=== PATIENT | male | born 1955 | race Caucasian/White ===

== ENCOUNTER 2018-03-12 12:13 | Inpatient (IN) | payer OTHER ==
[~2018-03-12] VITALS: Ht 180.3 cm; Wt 114.3 kg
[~2018-03-12 12:13] MED LIST: BACTRIM DS TAB1 EACH PO; BUDEPRION SR150 MG PO; CLONAZEPAM; CYCLOBENZAPRINE10 MG PO; DEPAKOTE 250MG250 M1 PO; DEPAKOTE ER500 MG PO; DIOVAN HCT 1601 EACH PO; DOXYCYCLINE 10100 M1 PO; DOXYCYCLINE 10100 MG PO; FLOMAX PO; LEVOTHYROXIN0.025 MG PO; MELOXICAM7.5 MG PO; NABUMETONE 500500 M1 PO; OMEPRAZOLE10 MG PO; OMEPRAZOLE20 M2 PO; PERCOCET 5-3251 EACH PO; PHENERGAN 25 MG25 M1 PO; PROZAC 10 MG CA10 M1 PO; PROZAC40 MG PO; RELAFEN500 MG PO; SIMVASTATIN20 MG PO; VESICARE 5 MG TA5 M1 PO; VICODIN 5-5001 EACH PO; VOLTAREN GEL 1100 G1 TOP; ZPAK PO; [UNRECOGNIZED DRUG - OTHER]; [UNRECOGNIZED DRUG - OTHER]; [UNRECOGNIZED DRUG - OTHER] OP
[2018-03-12 12:32] VITALS: BP 130/79
[2018-03-12 13:29] LABS: BE(vivo) 3.8 mmol/L (-2 to +3); HCO3 28.3 mmol/L (22.0-26.0); PCO2 VENOUS 41.9 mmHg (41.0-51.0); PO2 VENOUS 28.1 mmHg (35.0-45.0)
[2018-03-12 13:30] LABS: HEMATOCRIT 36.7 % (42.0-52.0); HEMOGLOBIN 12.5 gm/dL (14.0-18.0); MCH 30.9 pg (26.0-34.0); MCHC 34.2 g/dL (28.0-37.0); MCV 90.4 fL (80.0-100.0); PLATELET COUNT 221 thou/uL (150-400); RBC 4.06 mil/uL (4.50-6.00); RDW 13.9 % (10.5-14.5); WBC 14.8 thou/uL (4.0-11.0)
[2018-03-12 13:41] LABS: ANION GAP 9 mmol/L (7-16); BUN 22 mg/dL (7-18); CHLORIDE 95 mmol/L (98-107); CO2 31 mmol/L (21-32); CREATININE 0.9 mg/dL (0.7-1.3); GLUCOSE 120 mg/dL (74-106); SODIUM 135 mmol/L (136-145)
[2018-03-12 13:43] LABS: POTASSIUM 2.9 mmol/L (3.5-5.1)
[2018-03-12 13:49] LABS: ALBUMIN 2.2 g/dL (3.4-5.0); SGOT 31 U/L (15-37); SGPT 21 U/L (30-65); TOTAL BILIRUBIN 0.7 mg/dL (<0.1-1.0); TROPONIN-I <0.06 ng/mL (<0.06)
--- NOTE | 2018-03-12 14:02 | EKG ---
[address] [place] [address] ELECTROCARDIOGRAM REPORT Name: ALMITA WEBB Room #: [facility] Paramjit#: [id number] Admission: 03/12/18 Attend Phys: Discharge: Date of : 55 Report #: [id number] THIS REPORT FOR: //name// [facility] ED Test Date: 2018-03-12 Test Time: 13:38:59 Pat Name: ALMITA WEBB Department: Room: Gender: M Heart Nurse: SHILPI : 1955 Requested By: Maribel Silva Order Number: [id number] MD: Uli Callahan Measurements Intervals [place] Rate: 93 P: 10 SC: 145 QRS: -45 QRSD: 156 T: 1 QT: 464 QTc: 578 Interpretive Statements Sinus rhythm RBBB and LAFB Possible inferior infarct, age indeterminate Compared to ECG 07/20/2012 13:27:14 Left anterior fascicular block now present Right bundle-branch block now present Electronically Signed On 03-12-2018 14:02:06 IMAGING AIDE by Uli Callahan [email or web address] <ELECTRONICALLY SIGNED> By: Uli Callahan MD, [facility] 03/12/18 1402 1338 133 Uli Callahan MD, [facility] /EPI
[2018-03-12 14:08] LABS: ABSOLUTE NEUTROPHILS 10.5 thou/uL (1.4-8.2); ATYPICAL LYMPHS 6 %
[2018-03-12 14:13] LABS: TOXIC GRANULATION 1+
[2018-03-12 16:07] VITALS: BP 130/79
[2018-03-12 16:38] VITALS: BP 121/81
[2018-03-12 17:34] VITALS: BP 162/82
--- NOTE | 2018-03-12 18:21 | NUR ---
PATIENT ADMIT TO UNIT FROM ER AT 1645. A/O X4. SOB WITH EXERTION. CONGESTED COUGH. VSS, AFEBRILE. STANDBY ASSISTED WHEN UP TO BATHROOM. WILL KEEP MONITOR.
[2018-03-12 20:10] VITALS: BP 153/80
[2018-03-13 00:15] VITALS: BP 145/87
[2018-03-13 04:20] VITALS: BP 140/79
[2018-03-13 05:41] LABS: HEMATOCRIT 35.1 % (42.0-52.0); MCH 30.8 pg (26.0-34.0); MCHC 34.2 g/dL (28.0-37.0); MCV 90.2 fL (80.0-100.0); PLATELET COUNT 210 thou/uL (150-400); RBC 3.89 mil/uL (4.50-6.00); WBC 12.1 thou/uL (4.0-11.0)
[2018-03-13 06:01] LABS: ALBUMIN 1.8 g/dL (3.4-5.0); CALCIUM 8.5 mg/dL (8.5-10.1); CREATININE 0.7 mg/dL (0.7-1.3); MAGNESIUM 2.4 mg/dL (1.8-2.4); TOTAL BILIRUBIN 0.5 mg/dL (<0.1-1.0); TOTAL PROTEIN 6.3 g/dL (6.4-8.2)
[2018-03-13 06:54] LABS: BE(vivo) 5.1 mmol/L (-2 to +3); HCO3 29.8 mmol/L (22.0-26.0); PCO2 43.9 mmHg (35.0-45.0); PO2 74.5 mmHg (80.0-100.0); pH 7.449 (7.360-7.450); sO2 95.5 % (92.0-98.0)
[2018-03-13 07:16] VITALS: BP 142/85
[2018-03-13 07:34] LABS: ABSOLUTE NEUTROPHILS 8.5 thou/uL (1.4-8.2)
[2018-03-13 07:35] LABS: PLATELET ESTIMATE NORMAL
--- NOTE | 2018-03-13 08:13 | NUR ---
ASSUMED CARE OF PT AT 1900. A&Ox4 W/ OCCASIONAL UNRELATED COMMENTS. SR W/ BBB ON TELE. O2 SAT WAS 88% ON RA, 2L O2 VIA NC INITIATED, SATURATION INCREASED TO 97%. CONGESTED PRODUCTIVE COUGH. LAB CALLED W/ POSITIVE RESULTS FOR GRAM+ BLOOD CULTURES. CONTACTED DONOR FLOOR TECHNICIAN. ADDITIONAL ANTIBIOTICS GIVEN. SBA TO USED URINAL AT THE BEDSIDE, CALLED OUT STAFF REQUESTED. CURRENTLY RESTING AND PROGRESSING TOWARDS POC GOALS.
[2018-03-13] MEDS ORDERED: DEPAKOTE500 MG PO (13:37)
[2018-03-13] MEDS ORDERED: GEODON 80 MG CA80 MG PO (13:39)
[2018-03-13] MEDS ORDERED: COZAAR 25 MG TA25 M2 PO (13:39)
[2018-03-13] MEDS ORDERED: MOBIC15 MG PO (13:40)
--- NOTE | 2018-03-13 15:27 | NUR ---
ASSUMED PATIENT CARE AT 0715. A&OX4, BUT FORGETFUL. UP WITH ONE ASSIST AND A GAIT BELT. DOES NOT USE WALKER AT HOME. FORGETS TO CALL OUT FOR ASSISTANCE. BED ALARM AND CHAIR ALARM IN PLACE. ON 2L NC, NORMALLY ON RA. SCHEDULED BREATHING TREATMENTS. ANTIBIOTICS ORDERED. MEDICATIONS WERE RE RECONCILED TODAY SOME OF THE DOSING WAS INCORRECT. PROVIDER CORRECTED MEDS. PATIENT LIVES IN [facility] RECENT[facility] FLOOD[facility] AND HAS MOLD. PATIENT SLOWLY WORKING TOWARDS GOALS.
[2018-03-13 16:00] VITALS: BP 140/70
[2018-03-13 19:40] VITALS: BP 154/80
[2018-03-14 04:00] VITALS: BP 158/84
[2018-03-14 05:19] LABS: HEMATOCRIT 36.2 % (42.0-52.0); HEMOGLOBIN 11.9 gm/dL (14.0-18.0); RBC 3.98 mil/uL (4.50-6.00); RDW 14.5 % (10.5-14.5)
[2018-03-14 05:38] LABS: ALBUMIN 1.8 g/dL (3.4-5.0); CALCIUM 8.4 mg/dL (8.5-10.1); CREATININE 0.8 mg/dL (0.7-1.3); MAGNESIUM 2.1 mg/dL (1.8-2.4); POTASSIUM 3.4 mmol/L (3.5-5.1); TOTAL BILIRUBIN 0.4 mg/dL (<0.1-1.0); TOTAL PROTEIN 6.2 g/dL (6.4-8.2)
[2018-03-14 07:37] VITALS: BP 153/86
--- NOTE | 2018-03-14 08:35 | NUR ---
PT MAKING PROGRESS TOWARDS GOALS. ON O2 AT 2L PER NC THROUGHOUT THE NIGHT. PT DENIES ANY SOA WHILE AT REST. DENIES ANY SOA WHILE TRANSFERING FROM CHAIR TO BED. SOFT, NON-PRODUCTIVE COUGH. ETOH W/O ASSESEMENTS DONE. SEE SCORES. PT DENIES HAVING ANY ALCOHOL SINCE MARCH 05 OF THIS YEAR. NOTED CRACKLES OVER PTS LLL, REMAINING HIRSCH CLEAR.
--- NOTE | 2018-03-14 10:54 | NUR ---
PT ADMTITED RELATED TO SOB. CM REVIEWED CHART AND SPOKE WITH CARE TEAM. CM MET WITH PT AT BEDSIDE THIS DAY. PT IS A&O X4. CM ROLE INTRODUCED. PT INDICATED HE LIVES IN THE BASEMENT LEVEL OF A HOUSE WHERE HIS NIECES LIVES WELL. PT INDICATED THERE ARE 4 STEPS TO ENTER AND 10 STEPS TO THE BASEMENT. 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 PT INDICATED HE HAS A Graph Story THAT CHECKS ON HIM ONCE A YEAR. PT INDICATED HE PLANS TO RETURN HOME ONCE MEDICALLY STABLE. CM TO OFFER RESOURCES FOR AUBSTANCE ABUSE PROGRAMING. CM TO FOLLOW INDICATED WITH DC PLANNING.
--- NOTE | 2018-03-14 15:36 | NUR ---
PT CONT ON 2L NC, DENIES SOA. IS HAVING PRODUCTIVE COUGH. CIWA SCORE OF 7. PT HAS VISIBLE TREMOR AND MILD ANXIETY. PT REQUESTED ATIVAN THIS MORNING, WHICH WAS EFFECTIVE. PT UP TO CHAIR SEVERAL TIMES THIS SHIFT WITH STANDBY ASSIST. PROGRESSING TOWARD POC GOALS
[2018-03-14 17:02] VITALS: BP 144/76
[2018-03-14 19:41] VITALS: BP 143/82
[2018-03-15 04:27] VITALS: BP 148/91
[2018-03-15 05:48] LABS: HEMOGLOBIN 12.1 gm/dL (14.0-18.0); MCH 30.4 pg (26.0-34.0); MCHC 33.7 g/dL (28.0-37.0); MCV 90.4 fL (80.0-100.0); RBC 3.99 mil/uL (4.50-6.00); RDW 14.1 % (10.5-14.5); WBC 9.2 thou/uL (4.0-11.0)
[2018-03-15 06:02] LABS: CALCIUM 8.5 mg/dL (8.5-10.1); CREATININE 0.7 mg/dL (0.7-1.3); MAGNESIUM 1.9 mg/dL (1.8-2.4); POTASSIUM 3.5 mmol/L (3.5-5.1)
[2018-03-15 07:42] VITALS: BP 138/71
--- NOTE | 2018-03-15 08:00 | NUR ---
PT MAKING SLOW PROGRESS TOWARDS GOALS. PT FREQUENTLY TAKING O2 CANNUAL OFF. DENIED ANY SOA. ENCOURAGED TO REPLACE CANNULA AND CALL STAFF IF HE SENSED ANY SOA. ON ROOM AIR MUCH OF THE NIGHT. SPOT SPO2 CHECKS 93-94%. WEAK CONGESTED SOUNDING COUGH WITH NEARLY NO PRODUCTION OF SPUTUM. LUNGS, MILD COARSENESS OVER LEFT UPPER LOBE. PT UP TO TOILET ONCE, ONLY SBA NEEDED FOR AMBULATION. DENIED FEELING SOA WHEN RETURNING TO BED.
[2018-03-15 15:24] VITALS: BP 129/81
--- NOTE | 2018-03-15 18:27 | NUR ---
PT ALERT AND ORIENTED TIMES FOUR, WITH PERIODS OF CONFUSION. VSS, SR ON TELE, DENIES PAIN. PT TOLERATES MEDS AND MEALS. PT UP WITH ASSIST OF ONE. PT SLOWLY PROGRESSING TOWRADS POC GOALS.
[2018-03-15 20:25] VITALS: BP 150/84
[2018-03-16] VITALS (13 sets, daily range): BP systolic 115–155; BP diastolic 60–95
--- NOTE | 2018-03-16 07:17 | NUR ---
ASSUMED CARE OF PATIENT AROUND 1900. PATIENT HAVING INCREASED CIWA SCORES. LORAZEPAM ADMINISTERED. PATIENT ANXIETY AND AGITATION INCREASING, PATIENT PULLING OFF EKG LEADS, PICKING AT IV, GETTING OUT OF BED SAYING HE IS GOING HOME. SECURITY CALLED TO ROOM TO ASSIST WITH PATIENT AROUND 0200 PATIENT WOULD NOT RETURN TO BED. LORAZEPAM GIVEN, STORES CLERK CONTACTED, ORDERS RECEIVED FOR HALDOL IV. ADMINISTERED. PATIENT ABLE TO SLEEP AGAIN FOR ABOUT ONE HOUR. PATIENT BEGINNING TO CLIMB OUT OF BED, PICK AT NEWLY PLACED IV. STORES CLERK CONTACTED AGAIN FOR ORDERS. 4 MG OF LORAZEPAM ADMINISTERED AND ORDER FOR TRANSFER TO ICU NOTED FOR HIGH CIWA SCORE. PATIENT RESTING FOR REMAINDER OF SHIFT UNTIL ICU BED BECAME OPEN. AT 0645, REPORT GIVEN TO HEATHER STORM AND PATIENT TRANSFERRED TO ICU.
--- NOTE | 2018-03-16 08:08 | NUR ---
Pt TRANSFERRED TO ICU. WILL PLACE ON HOLD AND AWAIT FURTHER ORDERS TO RESUME WHEN APPROPRIATE
--- NOTE | 2018-03-16 15:49 | NUR ---
ASSESSMENTS DOCUMENTED. PT TRANSFERED FROM 3W TO ICU AT SHIFT CHANGE PER REQUEST OF NURSE PRACTITIONER. PT HAD BEEN GIVEN PRN ATIVAN AND ONETIME DOSE FOR CIWA SCORE. PT SLEEPING UPON ARRIVAL TO UNIT, WILL OPEN EYES AND FOLLOW REQUESTS. ALERT TO SELF. ABLE TO MAINTAIN APPROPRIATE CONVERSATION. VSS. 2L OXYGEN PER NC TO MAINTAIN SATS. CIWA SCORE Q4HR. WILL CONTINUE TO MONITOR. FALL PRECAUTIONS IN PLACE.
[2018-03-17] VITALS (16 sets, daily range): BP systolic 106–140; BP diastolic 56–103
--- NOTE | 2018-03-17 03:31 | NUR ---
ASSUMED CARE OF PATIENT AT 1900. VSS, AFEBRILE. INCONTINENT OF URINE THROUGHOUT THE NIGHT, ABLE TO ASK FOR URINAL TWICE. BECAME INCREASINGLY MORE ALERT AND ABLE ANSWER ORIENTATION QUESTIONS. SEVERE SLEEP APNEA, O2 TITRATED TO KEEP ABOVE 94%. ENCOURAGED TO COUGH AND DEEP BREATHE. UNABLE TO PRODUCE ANY SECRETIONS. SLEEPING WELL THROUGH THE NIGHT, PROGRESSING SLOWLY TOWARDS POC GOALS.
[2018-03-18 03:32] VITALS: BP 130/61
--- NOTE | 2018-03-18 03:59 | NUR ---
REPORT CALLED TO DOTTY TEJEDA ON 3W. ASSESSMENT PER DOCUMENTATION, VSS OVERNIGHT, NO DISTRESS NOTED. PT ON 2L NC, HAS HOME CPAP AT HOME BUT DOESN'T USE IT. PT DENIES SOA. PT HAS CHRONIC TRREMORS PER DAY RN. NO S/S OF ETOH WITHDRAWAL NOTED. PT VOIDS SMALL AMOUNTS FREQUENTLY, INCONTINENT AT TIMES. AROUND MIDNIGHT PT WAS ANXIOUS AND REQUESTING SOMETHING TO HELP HIM SLEEP, PRN CLONAZEPAM GIVEN, PT RESTING SINCE. AUTOMATIC PACKER OPERATOR CARRIE TO TRANSFER PT TO ROOM.
[2018-03-18 04:30] VITALS: BP 124/82
[2018-03-18 07:22] VITALS: BP 119/80
--- NOTE | 2018-03-18 09:37 | NUR ---
Nutrition: assess d/t LOS. Pt admitted for pneumonia. Was sleeping during attempted visit. Breakfast tray in room, 100% eaten. Per nursing, pt has had a good appetite. Possible transfer to senior suites today. Consider low risk.
[2018-03-18] MEDS ORDERED: CEFDINIR300 MG PO (11:51)
[2018-03-18] MEDS ORDERED: HYDROCHLOROTH12.5 M1 PO (11:54)
[2018-03-18] MEDS ORDERED: WELLBUTRIN 100100 MG PO (11:54)
[2018-03-18] MEDS ORDERED: WELLBUTRIN SR150 MG PO (11:54)
[2018-03-18] MEDS ORDERED: PREDNISONE 10 M10 MG PO (11:56)
[2018-03-18 12:14] VITALS: BP 119/80
--- NOTE | 2018-03-18 13:05 | NUR ---
PHYSICIAN INDICATED PT IS MEDICALLY STABLE TO DISCHRGE HOME THIS DAY. PT IS TO DISHCARGE HOME WITH NO NEEDS. NO OTHER CM INTERVENTION INDICATED AT THIS TIME. CASE CLOSED.
--- NOTE | 2018-03-18 14:54 | NUR ---
PT CARE ASSUMED AT 0700. PT DISCHARGING AT THIS TIME TO HOME WITH SELF CARE. PT ALERT AND ORIENTED X4. DENIES PAIN AND SOA. VSS. DISCHARGE PAPERWORK REVIEWED BY THIS NURSE WITH PT AND NIECES. ALL DENY QUESTIONS OR CONCERNS REGARDING DISCHARGE MEDS, LABS, VS, DIET, ACTIVITY LEVEL, F/U APPTS AND POST HOSPITAL CARE. ALL BELONGINGS IN PT POSSESSION. IV OUT, TELE BOX OFF. NIECES TRASPORTING PT HOME IN PERSONAL VEHICLE. HOSPITAL STAFF ESCORTING PT OUT AT THIS TIME.
== END 2018-03-18 15:14 | disposition home or self-care (01) | DRG 871 ==
LOC: ER 12:13 → EROBS 15:26 → 3W 15:26 → ICU 03-16 07:05 → 3W 03-18 04:38 → ENTRNSPT 03-18 14:48 → EDTRNSPTSTS 03-18 14:50 → 3W 03-18 15:14
PROVIDERS: Student in an Organized Health Care Education/Training Program; ADMIT Internal Medicine
DX: A41.9 Sepsis, unspecified organism (principal); J18.9 Pneumonia, unspecified organism; J96.01 Acute respiratory failure with hypoxia; B15.9 Hepatitis A without hepatic coma; B18.1 Chronic viral hepatitis B without delta-agent; I10 Essential (primary) hypertension; E78.00 Pure hypercholesterolemia, unspecified; F31.9 Bipolar disorder, unspecified; F41.9 Anxiety disorder, unspecified; E87.6 Hypokalemia; B18.2 Chronic viral hepatitis C; M19.90 Unspecified osteoarthritis, unspecified site; G47.33 Obstructive sleep apnea (adult) (pediatric); E03.9 Hypothyroidism, unspecified; E78.5 Hyperlipidemia, unspecified; F10.10 Alcohol abuse, uncomplicated; Z87.891 Personal history of nicotine dependence; Z71.6 Tobacco abuse counseling; Z79.899 Other long term (current) drug therapy
CPT/HCPCS: 10078; 10879